=== PATIENT | female | born 1950 | race Caucasian/White ===

== ENCOUNTER → 2019-01-20 | Outpatient (CLI) | payer MEDICARE, OTHER ==
[~2019-01-20] MED LIST: DOXYCYCLINE 10100 MG PO; IBUPROFEN200 M2 PO; PREDNISONE10 MG PO
== END ==
LOC: COL.RAD 07:30
DX: J38.7 Other diseases of larynx (principal)
CPT/HCPCS: Q9967

== ENCOUNTER 2019-01-23 11:09 | Inpatient (IN) | payer MEDICARE, OTHER ==
[~2019-01-23] VITALS: Ht 152.4 cm; Wt 62.0 kg
[2019-01-23] VITALS (45 sets, daily range): BP systolic 117–143; BP diastolic 63–73; PULSE 49–100; TEMP 97.5–98.7; O2SAT 97–100
[~2019-01-23 11:09] MED LIST changes: -DOXYCYCLINE 10100 MG PO; -PREDNISONE10 MG PO
[2019-01-23] MEDS ORDERED: PREDNISONE10 MG PO (12:19)
[2019-01-23] MEDS ORDERED: DOXYCYCLINE 10100 MG PO (12:19)
--- NOTE | 2019-01-23 12:36 | NUR ---
CALL LIGHT IN REACH AT BEDSIDE.
--- NOTE | 2019-01-23 12:36 | NUR ---
TO GONZÁLEZ AT 11:22- TONE CALLY CREDENTIALING MANAGER INTO TO TALK WITH PATIENT
--- NOTE | 2019-01-23 14:45 | NUR ---
Pt arrived to ICU room 2 from OR. Pt Alert, nods head yes/no to questions. Pt coughing with moderate amt white, thick secretions orally and via trach. Trach with size 6 Shiley. Trach drsg with sanguineous drainage, sutures intact. Pt on 8 via trach mask. VSS. Assessment completed. Call light in reach.
--- NOTE | 2019-01-23 15:20 | NUR ---
Pt's , Gee at bedside. Updated on pt status and plan of care r/t trach suctioning and pain medication. Pt's verbalized understanding. Pt resting in bed, oral suction within reach. Pt continues to have thick, white oral secretions. Minimal secretions suctioned from trach.
--- NOTE | 2019-01-23 16:30 | NUR ---
Pt up to bedside commode x1 assist. Steady gait. Unable to void at this time. Pt back to bed. HOB up at 45 degrees. VSS. Pt communicates by writing on paper. Call light in reach.
--- NOTE | 2019-01-23 19:34 | NUR ---
Report given to FESTUS Armstrong.
--- NOTE | 2019-01-23 20:00 | NUR ---
Patient assessed, vitals taken. Patient noted to be bradycardic and bradypneic but is holding adequate SpO2 sats and BP. Patient is arousable to voice and light touch but is noted to be drowsy. Patient is alert and oriented, follows directions. Will continue to monitor respirations, HR, and LOC.
[2019-01-24] VITALS (130 sets, daily range): BP systolic 108–149; BP diastolic 54–70; PULSE 44–86; TEMP 97.6–99.5; O2SAT 92–99
--- NOTE | 2019-01-24 02:17 | NUR ---
Straight cath performed on patient per provider's orders. 350mls of matilde, clear, strong smelling urine from straight cath. When asked if she feels better, the patient nodded and smiled.
[2019-01-24 05:59] LABS: HEMATOCRIT 38.4 % (37.0-47.0); HEMOGLOBIN 12.2 g/dl (12.5-16.0); MEAN CELL VOLUME 94 fl (80.0-100.0); MEAN CORPUSCULAR HEMOGLOBIN 30 pg (27.0-31.0); MEAN CORPUSCULAR HGB CONC 32 g/dl (33.0-37.0); MEAN PLATELET VOLUME 9.3 fl (7.4-10.4); PLATELET COUNT 274 K/mm3 (130-400); RED BLOOD COUNT 4.09 M/mm3 (4.10-5.30); REDCELL DISTRIBUTION WIDTH-CV 13.2 % (11.5-14.5)
[2019-01-24 06:11] LABS: CALCIUM 9.1 mg/dL (8.4-10.2); CREATININE, serum 0.74 (0.52-1.25); POTASSIUM 5.3 mmol/L (3.4-5.0)
--- NOTE | 2019-01-24 07:23 | NUR ---
Report received from Patti MORTENSEN and care resumed.
--- NOTE | 2019-01-24 07:24 | NUR ---
Report given to FESTUS Flynn.
--- NOTE | 2019-01-24 07:42 | NUR ---
Dr Olivera in to see pt at this time.
--- NOTE | 2019-01-24 11:16 | NUR ---
Report called to Neelam MORTENSEN on medical floor. Pt to transfer to 309.
--- NOTE | 2019-01-24 11:40 | NUR ---
Pt taken to room 309 with chart and belongings. Bedside update given to Neelam MORTENSEN.
--- NOTE | 2019-01-24 11:40 | NUR ---
Patient's IV fluids complete. INT IV site. Patient noted to be coughing and have increased secretions to trach. Would like to be suctioned. RT called.
--- NOTE | 2019-01-24 11:59 | NUR ---
ornamental iron worker met with patient and spouse to assess for discharge. Patient plans to return home with spouse, possibly on . Patient has been working at [employer], however, spouse states she probably won't return. Spouse states he retired yesterday and will help care for patient. Worker discussed home health support and durable medical equipment needed as patient will discharge needing trach supplies, care, and teaching. Worker provided Medicare home health compare option sheet and spouse chose [facility]. Worker presented medical equipment supply options and spouse chose [facility] and choice form was signed. Patient was a part of the discussion, however, cannot speak and wanted spouse to make decisions. Worker provided referrals to [facility] hospital and [facility]. Home medical will need to bring a trach shield, and home oxygen if qualifies, to the hospital and other supplies they will deliver to the home upon discharge.
--- NOTE | 2019-01-24 19:15 | NUR ---
PT HAD UNEVENTFUL AFTERNOON. NO C/O PAIN. TOLERATING CLEAR LIQUIDS WITHOUT ISSUES. TRACHSHIELD IN PLACE, HAD TO TIGHTEN CORD A FEW TIMES. NO OTHER ISSUES NOTED.
--- NOTE | 2019-01-24 21:43 | NUR ---
Patient was awake and alert in bed, respirations even and nonlabored. Trach mask in place with oxygen being administered. There are some clear/gauthier colored secretions noted. Respiratory therapy in for trach care, tolerated well. Respirations are even and nonlabored. Denies pain. Wishes to have door closed and demonstrated that she knows how to shut light off. Call light is within reach.
[2019-01-25 03:58] VITALS: BP 101/44; PULSE 64; TEMP 98.3
--- NOTE | 2019-01-25 05:24 | NUR ---
Patient is resting in bed with eyes closed, oxygen in place at 10L via trach shield. There is no audible secretions at this time. Respirations are even and nonlabored. Call light and personal items are within reach.
[2019-01-25 07:19] VITALS: BP 140/55; PULSE 65; TEMP 98.8
--- NOTE | 2019-01-25 07:59 | NUR ---
TRACH CARE COMPLETED WITHOUT INCIDENT. CUFF IS DEFLATED ON THIS 6 SHILEY,SURGERY DEFLATED IT PER THEIR NOTES. PATIENT TOLERATES. TRACH TIE IS UNTIED. PATIENT ACKNOLEDGES THIS IT ALLOWS HER TO SLEEP AND IS CAREFULL WITH IT WHILE WALKING TO BATHROOM. i DISCUSSED ALL OF THIS WITH NURSING.
--- NOTE | 2019-01-25 10:56 | NUR ---
NOAH collaborated with Dr. Lr. Dr. Lr reports that the patient is stable and would be able to discharge today if the trach supplies is all set up. NOAH contacted the patient's , Gee, via phone to update and then met with the patient. The patient and her report that they are ready to get home. NOAH contacted and faxed the trach supplies script to Ilya at [facility]. Ilya reports that they are able to fill the order today and will deliver an HME Cap to the hospital for the patient to use for the ride home. NOAH contacted and updated Ant at [facility]. Ant reports that they will have someone out to the patient's home today. SW to continue to follow.
[2019-01-25 11:41] VITALS: BP 143/70; PULSE 97; TEMP 98.5
--- NOTE | 2019-01-25 15:10 | NUR ---
Ilya, at [facility], delivered the HME cap to the patient. The patient is to discharge back home with her today, 01/25, with home health services for fpc. SW notified Julien, nurse, at [facility] and Ilya at [facility] of tentative discharge time. No additional needs at this time.
--- NOTE | 2019-01-25 15:29 | NUR ---
IV discontiued from left forearm with tip intact. Discharge instructions reviewed with pt regarding home health orders and follow-up appointments. Pt discharged home, escorted out of facility via WC accompanied by NEUROLOGY STROKE PHYSICIAN and pt's .
== END 2019-01-25 15:30 | disposition home health service (06) | DRG 13 ==
LOC: SDCO 11:09 → ICU 14:37 → SDCO 14:38 → ICU 14:39 → MEDICAL 14:39
PROVIDERS: ADMIT Student in an Organized Health Care Education/Training Program
PROC: 0B110F4 Bypass Trachea to Cutaneous with Tracheostomy Device, Open Approach (ICD-10-PCS; principal; 2019-01-23 13:30)
PROC: 0CBS8ZX Excision of Larynx, Via Natural or Artificial Opening Endoscopic, Diagnostic (ICD-10-PCS; 2019-01-23 13:30)
DX: C32.1 Malignant neoplasm of supraglottis (principal); Z87.891 Personal history of nicotine dependence
CPT/HCPCS: J1100; J1170; J1644; J2250; J2405; J2704; J3010; J7120

== ENCOUNTER 2019-05-25 10:37 | Outpatient (RCR) | payer MEDICARE, OTHER ==
[2019-05-25] VITALS (10 sets, daily range): BP systolic 125–146; BP diastolic 45–79; PULSE 59–75; TEMP 98.2–98.8
[~2019-05-25 10:37] MED LIST changes: +DOXYCYCLINE 10100 MG PO; +PREDNISONE10 MG PO
== END 2019-05-25 17:32 | disposition home or self-care (01) ==
LOC: EUO 10:37
DX: C32.1 Malignant neoplasm of supraglottis (principal)
CPT/HCPCS: J7050; P9016

== ENCOUNTER 2021-08-05 05:08 | Inpatient (IN) | payer MEDICARE, OTHER ==
[~2021-08-05] VITALS: Ht 152.4 cm; Wt 63.7 kg
[2021-08-05] VITALS (338 sets, daily range): BP systolic 117–141; BP diastolic 64–74; PULSE 52–68; TEMP 97.7–100.5; O2SAT 86–100
--- NOTE | 2021-08-05 05:35 | NUR ---
PT AMBULATED TO BAY 7 WITHOUT DIFFICULTY ACCOMPANIED BY . VS OBTAINED. CONSENT SIGNED. 18G IV INFUSING LR IN L FOREARM. ORIENTED TO ROOM AND CALL LIGHT. VERBALIZED UNDERSTANDING. CALL LIGHT WITHIN REACH. WILL CONTINUE TO MONITOR PT. DENIES ANY NEEDS AT THIS TIME.
--- NOTE | 2021-08-05 05:35 | NUR ---
PT AMBULATED TO BAY 7 ACCOMPANIED BY NANCY.
--- NOTE | 2021-08-05 11:10 | NUR ---
Patient arrived to the unit at approx 1100 after having a trach placed this morning by Dr. Olivera. Patient arrived on a ventilator as she had periods of sleep apnea while in PACU; Dr. Mcclendon and RT both evaluated patient and will attempt to get her off of the vent later today. Patient is easily awakened and responds appropriately to questions and follows commands appropriately; she has no complaints of pain at this time.
--- NOTE | 2021-08-05 17:33 | NUR ---
Patient not currently on sedation meds; no need for sedation vacation
[2021-08-05 18:13] LABS: ARTERIAL BLD GAS O2 SATURATION 96.8 % (92-100); ARTERIAL BLOOD GAS BASE EXCESS -0.7 (-2-2); ARTERIAL BLOOD GAS HCO3 21.1 meq/L (22-26); ARTERIAL BLOOD GAS PCO2 27.3 mmHg (35-45); ARTERIAL BLOOD GAS PO2 82.7 mmHg (80-100); ARTERIAL BLOOD GAS pH 7.51 (7.35-7.45)
--- NOTE | 2021-08-05 18:53 | NUR ---
SXN SMALL PINK PALE YELLOW THICK
[2021-08-05 19:45] LABS: BASO % 0.1 % (0.0-2.0); GRAN # 6.7 K/mm3 (1.4-6.5); GRAN % 87.9 % (42.2-75.2); HEMOGLOBIN 11.6 g/dl (12.5-16.0); LYMPH # 0.7 K/mm3 (1.2-3.4); LYMPH % 8.9 % (20.0-51.0); MEAN CELL VOLUME 91 fl (80.0-100.0); MEAN CORPUSCULAR HEMOGLOBIN 30 pg (27-31); MEAN CORPUSCULAR HGB CONC 33 g/dl (33.0-37.0); MEAN PLATELET VOLUME 9.4 fl (7.4-10.4); MONO # 0.2 K/mm3 (0.1-0.6); MONO % 2.8 % (1.7-9.3); PLATELET COUNT 210 K/mm3 (130-400); RED BLOOD COUNT 3.85 M/mm3 (4.10-5.30); REDCELL DISTRIBUTION WIDTH-CV 14.1 % (11.5-14.5)
[2021-08-05 19:57] LABS: CALCIUM 8.5 mg/dL (8.4-10.2); CREATININE, serum 1.34 mg/dL (0.57-1.11); MAGNESIUM 1.6 mg/dL (1.6-2.6); POTASSIUM 4.2 mmol/L (3.5-4.5)
--- NOTE | 2021-08-05 20:42 | NUR ---
ASSESSMENT COMPLETED. PATIENT RESTING COMFORTABLY IN BED. PATIENT INTUBATED, BUT NODS/ MOUTHS WORDS APPROPRIATELY. NOT ON ANY SEDATION. DENEIS ANY PAIN. SEE DOCUMENTED ASSESSMENT. WILL CONTINUE TO MONITOR FOR CHANGES
--- NOTE | 2021-08-05 23:24 | NUR ---
HME INLINE PT RESTING ON VENT AT THIS TIME
[2021-08-06] VITALS (1157 sets, daily range): BP systolic 99–154; BP diastolic 65–82; PULSE 48–76; TEMP 98.2–99.3; O2SAT 78–100
[2021-08-06 04:11] LABS: ARTERIAL BLD GAS O2 SATURATION 97.8 % (92-100); ARTERIAL BLD GAS TCO2 CT 20.7; ARTERIAL BLOOD GAS BASE EXCESS -2.2 (-2-2); ARTERIAL BLOOD GAS HCO3 19.9 meq/L (22-26); ARTERIAL BLOOD GAS PCO2 26.4 mmHg (35-45); ARTERIAL BLOOD GAS PO2 100.3 mmHg (80-100)
[2021-08-06 04:23] LABS: RED BLOOD COUNT 3.31 M/mm3 (4.10-5.30)
[2021-08-06 04:24] LABS: BASO % 0.2 % (0.0-2.0); EOS % 0.1 % (0.0-4.0); GRAN # 7.5 K/mm3 (1.4-6.5); GRAN % 80.2 % (42.2-75.2); LYMPH % 11.1 % (20.0-51.0); MEAN CELL VOLUME 93 fl (80.0-100.0); MEAN CORPUSCULAR HEMOGLOBIN 30 pg (27-31); MEAN CORPUSCULAR HGB CONC 33 g/dl (33.0-37.0); MEAN PLATELET VOLUME 9.5 fl (7.4-10.4); MONO # 0.8 K/mm3 (0.1-0.6); MONO % 8.1 % (1.7-9.3); PLATELET COUNT 159 K/mm3 (130-400); REDCELL DISTRIBUTION WIDTH-CV 14.4 % (11.5-14.5)
[2021-08-06 04:33] LABS: HEMATOCRIT 30.7 % (37.0-47.0)
[2021-08-06 04:40] LABS: BLOOD UREA NITROGEN 27 mg/dL (10-20); CALCIUM 7.6 mg/dL (8.4-10.2); CHLORIDE 112 mmol/L (98-107); CREATININE, serum 1.27 mg/dL (0.57-1.11); GLUCOSE 94 mg/dL (70-99); MAGNESIUM 1.6 mg/dL (1.6-2.6); PHOSPHOROUS 3.1 mg/dL (2.3-4.7); POTASSIUM 3.7 mmol/L (3.5-4.5); SODIUM 142 mmol/L (136-145)
[2021-08-06 04:41] LABS: CARBON DIOXIDE 22 mmol/L (23-31)
--- NOTE | 2021-08-06 05:31 | NUR ---
POSSIBLY WEAN LATER PT SLEEPING AT THIS TIME
--- NOTE | 2021-08-06 08:15 | NUR ---
pt started weaning trial from vent.
--- NOTE | 2021-08-06 09:38 | NUR ---
PT weaning trial successful and PT was removed from vent placed on TRACH colar at 30 % humidified oxygen.
--- NOTE | 2021-08-06 09:44 | NUR ---
PT PLACED ON 33% HEATED AEROSAL VIA TRACH MASK. PT TOLERATING WELL.
--- NOTE | 2021-08-06 11:27 | NUR ---
Crab Steamer met with patient and patient's , Gee (ph#[phone]) to discuss discharge planning. Patient lives in [place] with Gee and sees Dr. Griffin for primary care. Patient obtains medications from [facility] with no difficulties and does not use any DME at home at this time. Patient reports independence with ADLS and plans to return home at time of discharge. Patient reports that her , Gee is her DPOA-HC. NOAH contacted Dr. Griffin's office and requested a copy, then placed copy on chart. SW confirmed DPOA-HC is , Gee. PT is consulted for patient and recommending home. Discharge Plan: Home
--- NOTE | 2021-08-06 11:31 | NUR ---
First visit from the candle making supervisor. No needs right now.
--- NOTE | 2021-08-06 13:09 | NUR ---
Made a follow up APPT with the pulmonary & ENT office with Dr. Lr , as Dr. Olivera will be unavailable. APPT is 11:00 am August 12.
--- NOTE | 2021-08-06 14:26 | NUR ---
Spinner Operator was notified that patient is ready for discharge and needs trach supplies set up. SW obtained physician signature on DME form and faxed referral with order to [facility]. Elodia with [facility] advised that despite having patient on their service in the past, this will be treated as a new trach set up, which requires a trach evaluation to be performed by their [facility] RT, who comes from [place]. The soonest the RT can come to the evaluation is 08/08/21 at 1030. NOAH checked with other local DME providers including [facility], [facility], and [facility] and found that these providers can not provide trach supplies. NOAH contacted attending physician and provided this update. Patient cannot be set up with supplies until RT evaluation is completed on Wednesday morning. NOAH met with patient and her , Gee to provide this update. Both are very upset by this and express that they wanted to be discharged today. Gee expressed to this SW that this hospital has a terrible reputation and that no one he knows wants to use this hospital. Gee reported a poor experience yesterday and feels that no one will look him in the eye and be honest with him. NOAH offered contact information for Risk Management to Gee, however he was not interested in speaking with RM at this time. Gee expressed to NOAH and RN that we need to "open up" the hospital again. Gee is under the impression that parts of our hospital are not operational at this time. After discussion with patient and Gee about safe discharge planning, Gee has decided to go home and get some rest. Discharge Plan: Home after Wednesday RT evaluation and trach supply set up.
--- NOTE | 2021-08-06 18:38 | NUR ---
PT got out of bed without notifying nurse, pt had a BM on the floor. PT was cleaned, linens changed and PT was educated on fall safety and bed alarms are now on
[2021-08-07] VITALS (168 sets, daily range): BP systolic 123–153; BP diastolic 64–86; PULSE 67–78; TEMP 97.7–98.5; O2SAT 58–100
--- NOTE | 2021-08-07 01:45 | NUR ---
RECEIVED REPORT FROM FESTUS ORTIZ.
[2021-08-07 05:36] LABS: ARTERIAL BLD GAS O2 SATURATION 94.5 % (92-100); ARTERIAL BLD GAS TCO2 CT 22.5; ARTERIAL BLOOD GAS BASE EXCESS -2.3 (-2-2); ARTERIAL BLOOD GAS HCO3 21.5 meq/L (22-26); ARTERIAL BLOOD GAS PCO2 33.6 mmHg (35-45); ARTERIAL BLOOD GAS PO2 73.4 mmHg (80-100); ARTERIAL BLOOD GAS pH 7.42 (7.35-7.45)
[2021-08-07 06:02] LABS: BASO % 0.1 % (0.0-2.0); EOS # 0.1 K/mm3 (0.0-0.7); EOS % 1.4 % (0.0-4.0); GRAN # 7.7 K/mm3 (1.4-6.5); GRAN % 82.6 % (42.2-75.2); HEMOGLOBIN 10.8 g/dl (12.5-16.0); LYMPH # 0.8 K/mm3 (1.2-3.4); LYMPH % 8.6 % (20.0-51.0); MEAN CELL VOLUME 96 fl (80.0-100.0); MEAN CORPUSCULAR HEMOGLOBIN 30 pg (27-31); MEAN CORPUSCULAR HGB CONC 32 g/dl (33.0-37.0); MEAN PLATELET VOLUME 9.7 fl (7.4-10.4); MONO # 0.7 K/mm3 (0.1-0.6); PLATELET COUNT 176 K/mm3 (130-400); RED BLOOD COUNT 3.57 M/mm3 (4.10-5.30); REDCELL DISTRIBUTION WIDTH-CV 14.5 % (11.5-14.5)
[2021-08-07 06:07] LABS: HEMATOCRIT 34.3 % (37.0-47.0)
[2021-08-07 06:15] LABS: CALCIUM 8.3 mg/dL (8.4-10.2); CREATININE, serum 1.23 mg/dL (0.57-1.11); MAGNESIUM 1.9 mg/dL (1.6-2.6); PHOSPHOROUS 3.4 mg/dL (2.3-4.7)
--- NOTE | 2021-08-07 12:53 | NUR ---
Brim Rounder collaborated with attending physician and RN about patient discharge today. NOAH spoke with Elodia at [facility] and confirmed they can do the RT visit tomorrow at patient's home at the scheduled time, instead of in the hospital. Elodia confirmed with the RT, Greg that they will have the supplies needed for patient tomorrow at the time of the evaluation. Patient to have supplies given to her from the hospital to get her through this evening until RT evaluation tomorrow and supply set up. NOAH spoke with Greg KIRK and provided type/size of trach. Greg advised he will be at patient's home tomorrow at 1030 for set up. Patient has had trach in the past and she and feel comfortable with plan and comfortable with trach care. Discharge Plan: Home
--- NOTE | 2021-08-07 12:58 | NUR ---
PT is leaving ambulatory with spouse home. Dr. Olivera feels comfortable with the PT going home without first seeing the AVM, as the PT had a TRACH in 2019 and still has a suction maching at home. The AVM will meet with the PT in her home tomorrow at 1030 to evaluate and supply the PT. All questions were answered and PT left with education, discharge summary, and all belongings including dentures.
== END 2021-08-07 14:10 | disposition home or self-care (01) | DRG 13 ==
LOC: INPTSU 05:08 → SURG 07:30 → ICU 12:48
PROVIDERS: Internal Medicine Pulmonary Disease; ADMIT Student in an Organized Health Care Education/Training Program
PROC: 0CBS8ZX Excision of Larynx, Via Natural or Artificial Opening Endoscopic, Diagnostic (ICD-10-PCS; 2021-08-05)
PROC: 0B110F4 Bypass Trachea to Cutaneous with Tracheostomy Device, Open Approach (ICD-10-PCS; principal; 2021-08-05 07:30)
PROC: 0CBR8ZX Excision of Epiglottis, Via Natural or Artificial Opening Endoscopic, Diagnostic (ICD-10-PCS; 2021-08-05 07:30)
PROC: 5A1935Z Respiratory Ventilation, Less than 24 Consecutive Hours (ICD-10-PCS; 2021-08-06)
DX: J39.8 Other specified diseases of upper respiratory tract (principal); F17.210 Nicotine dependence, cigarettes, uncomplicated; J44.9 Chronic obstructive pulmonary disease, unspecified; Z85.21 Personal history of malignant neoplasm of larynx; Z88.0 Allergy status to penicillin
CPT/HCPCS: A7521; J0330; J0690; J1100; J2250; J2370; J2405; J2704; J3010; J7030; J7120